=== PATIENT | female | born 1955 | race African-American/Black ===

== ENCOUNTER 2018-07-15 06:13 | Emergency (ER) | payer OTHER ==
--- NOTE | 2018-07-15 06:54 | ER Document Report ---
HPI - HPI Time Seen by Provider: 07/15/18 06:47 Pain Level: Denies Context: Patient is a 62-year-old female that comes to the emergency department for chief complaint of urinary hesitancy, a little bit of blood in her urine, but she denies abdominal pain. She states she is very familiar with the symptoms, this is the beginning of urinary tract infection for her. She states she gets them periodically. She denies fever or chills, nausea vomiting, pain in her abdomen or flank this time. She denies any other complaints. - REPRODUCTIVE Reproductive: DENIES: : Past Medical History - General Information source: Patient - Social History Smoking Status: Never Smoker Frequency of alcohol use: None Drug Abuse: None Lives with: Family Family History: Reviewed & Not Pertinent - Past Medical History Cardiac Medical History: Reports: Hx Hypercholesterolemia, Hx Hypertension Renal/ Medical History: Denies: Hx Peritoneal Dialysis Past Surgical History: Reports: Hx Hysterectomy - Immunizations Immunizations up to date: Yes Hx Diphtheria, Pertussis, Tetanus Vaccination: Yes - unsure Vertical Provider Document - CONSTITUTIONAL General Appearance: WD/WN, No Apparent Distress - INFECTION CONTROL TRAVEL OUTSIDE OF THE [place] IN LAST 30 DAYS: No - HEENT HEENT: Atraumatic, Normocephalic - NECK Neck: Normal Inspection - RESPIRATORY Respiratory: Breath Sounds Normal, No Respiratory Distress - CARDIOVASCULAR Cardiovascular: Regular Rate, Regular Rhythm - GI/ABDOMEN Gastrointestinal: Abdomen Soft, Abdomen Non-Tender - BACK Back: Normal Inspection - MUSCULOSKELETAL/EXTREMETIES Musculoskeletal/Extremeties: MAEW, FROM, Non-Tender - NEURO Level of Consciousness: Awake, Alert, Appropriate Motor/Sensory: No Motor Deficit, No Sensory Deficit - DERM Integumentary: Warm, Dry, No Rash Course - Re-evaluation Re-evalutation: Patient is extremely well-appearing, very well dressed, sitting on her bed reading a Bible study book. Soft benign abdomen, smiling and well-appearing, unremarkable vital signs. Patient's urine is concerningly infected in appearance. There also are calcium oxalate crystals. However patient has no flank pain, no abdominal pain, soft abdomen on exam, extremely well-appearing on reevaluation. She has no fever, vital signs are normal. I did discuss possibly doing additional work-up but thi s was deferred after discussion. This does appear to be treated cystitis at this time. Culture was placed, placed on antibiotics, discussed follow-up and return. Patient states understanding. - Vital Signs Vital signs: Temp Pulse Resp BP Pulse Ox 97.2 F 76 16 136/82 H 95 07/15/18 06:23 07/15/18 06:23 07/15/18 06:23 07/15/18 06:23 07/15/18 06:23 Discharge - Discharge Clinical Impression: Urinary symptom or sign Urinary tract infection Qualifiers: Urinary tract infection type: site unspecified Hematuria presence: with hematuria Qualified Code(s): N39.0 - Urinary tract infection, site not specified Condition: Stable Disposition: HOME, SELF-CARE Additional Instructions: Your symptoms and testing are most consistent with cystitis (a bladder infection). Take antibiotics as prescribed. Follow-up with primary care. Return if you worsen in any way including fever, abdominal pain, flank pain, vomiting, confusion, or any other concerning or worsening symptoms. Prescriptions: Cephalexin Monohydrate [Keflex 500 mg Capsule] 500 mg PO BID 7 Days #14 capsule Referrals: JUAN DAVID SHARP MD [Primary Care Provider] - Follow up as needed
[2018-07-15 07:25] LABS: APPEARANCE,URINE TURBID; BILIRUBIN,URINE NEGATIVE (NEGATIVE); CALCIUM OXALATE CRYSTALS,URINE TOO NUMEROUS TO CNT /HPF; COLOR,URINE RED; GLUCOSE, URINE 50 mg/dL (NEGATIVE); KETONES,URINE TRACE mg/dL (NEGATIVE); LEUKOCYTE ESTERASE,URINE TRACE (NEGATIVE); NITRITE,URINE NEGATIVE (NEGATIVE); PROTEIN,URINE 100 mg/dL (NEGATIVE); URINE SPECIFIC GRAVITY 1.023; UROBILINOGEN,URINE NEGATIVE mg/dL (<2.0)
[2018-07-15] MEDS ORDERED: CEPHALEXIN 500 MG CAPSULE PO ONE (07:36)
[2018-07-15 08:00] VITALS: BP 134/72
== END 2018-07-15 08:00 | disposition home or self-care (01) ==
LOC: ER 06:13
DX: N39.0 Urinary tract infection, site not specified (principal); R39.11 Hesitancy of micturition; E78.00 Pure hypercholesterolemia, unspecified; I10 Essential (primary) hypertension; Z90.710 Acquired absence of both cervix and uterus
CPT/HCPCS: 81001; 87086; 87088; 87186; 99283

== ENCOUNTER 2019-06-11 22:36 | Emergency (ER) | payer OTHER ==
[2019-06-11 23:38] LABS: APPEARANCE,URINE CLOUDY; BILIRUBIN,URINE NEGATIVE (NEGATIVE); COLOR,URINE YELLOW; GLUCOSE, URINE NEGATIVE (NEGATIVE); KETONES,URINE NEGATIVE (NEGATIVE); LEUKOCYTE ESTERASE,URINE LARGE (NEGATIVE); NITRITE,URINE POSITIVE (NEGATIVE); PROTEIN,URINE 100 mg/dL (NEGATIVE)
--- NOTE | 2019-06-12 00:10 | ER Document Report ---
ED General - General Chief Complaint: Urinary Frequency Stated Complaint: BLOOD IN URINE Primary Care Provider: JUAN DAVID SHARP MD [Primary Care Provider] - Follow up as needed Mode of Arrival: Ambulatory Information source: Patient TRAVEL OUTSIDE OF THE [place] IN LAST 30 DAYS: No - HPI Onset: Other - started earlier in the day yesterday Onset/Duration: Gradual Quality of pain: Achy - in suprapubic area Severity: Mild Associated symptoms: Other - urinary urgency and frequency Exacerbated by: Denies Relieved by: Denies Similar symptoms previously: Yes - with prior UTIs Recently seen / treated by doctor: No Notes: 63 year old female with a history of HTN and prior UTIs here in the ER for mild suprapubic pain, urinary urgency, urinary frequency and seeing blood in her urine. The patient says this feels like previous UTIs to her. The patient patient denies fevers, chills, sweats, nausea, vomiting, flank pain. The patient has never had resistant organism UTIs in the past based on prior urine cultures. - Related Data Allergies/Adverse Reactions: No Known Allergies Allergy (Verified 06/11/19 23:11) Past Medical History - General Information source: Patient - Social History Smoking Status: Never Smoker Frequency of alcohol use: None Drug Abuse: None Family History: Reviewed & Not Pertinent Patient has homicidal ideation: No - Past Medical History Cardiac Medical History: Reports: Hx Hypercholesterolemia, Hx Hypertension Renal/ Medical History: Denies: Hx Peritoneal Dialysis Past Surgical History: Reports: Hx Hysterectomy - Immunizations Immunizations up to date: Yes Hx Diphtheria, Pertussis, Tetanus Vaccination: Yes - unsure Review of Systems - Review of Systems Constitutional: No symptoms reported. denies: Fever EENT: No symptoms reported Cardiovascular: No symptoms reported Respiratory: No symptoms reported Gastrointestinal: No symptoms reported Genitourinary: Discharge, Frequency, Hematuria, Urgency. denies: Flank pain Musculoskeletal: No symptoms reported Skin: No symptoms reported Hematologic/Lymphatic: No symptoms reported Neurological/Psychological: No symptoms reported -: Yes All other systems reviewed and negative Physical Exam - Vital signs Vitals: Temp Pulse Resp BP Pulse Ox 97.7 F 83 13 164/89 H 98 06/11/19 22:41 06/11/19 22:41 06/11/19 22:41 06/11/19 22:41 06/11/19 22:41 - Notes Notes: GENERAL: Well-appearing, well-nourished and in no acute distress. HEAD: Atraumatic, normocephalic. EYES: Pupils equal round and reactive to light, extraocular movements intact, sclera anicteric, conjunctiva are normal. ENT: External ears normal, nares patent, oropharynx clear without exudates. Moist mucous membranes. NECK: Normal range of motion, supple without lymphadenopathy or JVD. LUNGS: Breath sounds clear to auscultation bilaterally and equal. No wheezes rales or rhonchi. HEART: Regular rate and rhythm without murmurs, rubs or gallops. ABDOMEN: Soft, nontender, normoactive bowel sounds. No guarding, no rebound. No masses appreciated. EXTREMITIES: Normal range of motion, no pitting or edema. No clubbing or cyanosis. NEUROLOGICAL: Cranial nerves II through XII grossly intact. Normal speech, normal gait. PSYCH: Normal mood, normal affect. SKIN: Warm, Dry, normal turgor, no rashes or lesions noted. Course - Re-evaluation Re-evalutation: 06/12/19 00:27 The patient has a simple UTI. Will treat with Cipro 250mg BID for 3 days. Patient given a dose of Cipro in the ER since all pharmacies closed at this hour. Urine culture pending. Looking back at prior urine cultures, patient has had [place] sensitive E coli UTIs in the past. - Vital Signs Vital signs: Temp Pulse Resp BP Pulse Ox 97.8 F 72 17 132/78 H 97 06/12/19 00:17 06/12/19 00:17 06/12/19 00:17 06/12/19 00:17 06/12/19 00:17 - Laboratory Laboratory results interpreted by nh: 06/11/19 23:12 Urine Protein 100 H Urine Blood LARGE H Urine Nitrite POSITIVE H Urine Urobilinogen 4.0 H Ur Leukocyte Esterase LARGE H Discharge - Discharge Clinical Impression: UTI (urinary tract infection) Qualifiers: Urinary tract infection type: acute cystitis Hematuria presence: with hematuria Qualified Code(s): N30.01 - Acute cystitis with hematuria Condition: Stable Disposition: HOME, SELF-CARE Instructions: Urinary Tract Infection ([facility]) Additional Instructions: Drink plenty of water in the days to come. Take antibiotics (Cipro 250mg twice a day for 3 days) as prescribed. Follow up with your primary care doctor if symptoms persist despite treatment. You have a urine culture pending which your doctor can follow up. Prescriptions: Ciprofloxacin HCl [Cipro 500 mg Tablet] 250 mg PO BID #6 tablet Referrals: JUAN DAVID SHARP MD [Primary Care Provider] - Follow up as needed
[2019-06-12 00:18] VITALS: BP 132/78
[2019-06-12] MEDS ORDERED: CIPROFLOXACIN HCL 500 MG TABLET PO ONE (00:20)
== END 2019-06-12 00:28 | disposition home or self-care (01) ==
LOC: ER 22:36
DX: N30.01 Acute cystitis with hematuria (principal); I10 Essential (primary) hypertension
CPT/HCPCS: 81001; 87086; 87088; 87186; 99283

== ENCOUNTER 2019-09-26 22:17 | Emergency (ER) | payer OTHER ==
[2019-09-26 22:38] VITALS: BP 151/79
[2019-09-26 23:38] LABS: APPEARANCE,URINE CLOUDY; BILIRUBIN,URINE NEGATIVE (NEGATIVE); COLOR,URINE YELLOW; GLUCOSE, URINE NEGATIVE (NEGATIVE); KETONES,URINE NEGATIVE (NEGATIVE); LEUKOCYTE ESTERASE,URINE LARGE (NEGATIVE); NITRITE,URINE NEGATIVE (NEGATIVE); PROTEIN,URINE 100 mg/dL (NEGATIVE); URINE SPECIFIC GRAVITY 1.021
[2019-09-26] MEDS ORDERED: CEFTRIAXONE INJ 1000 MG VIAL IM ONE (23:41)
[2019-09-26] MEDS ORDERED: LIDOCAINE 1% INJ (10 MG/ML) 10 ML MDV INJ ONE (23:41)
--- NOTE | 2019-09-26 23:41 | ER Document Report ---
HPI - HPI Patient complains to provider of: UTI Time Seen by Provider: 09/26/19 23:15 Onset: Yesterday Onset/Duration: Gradual Pain Level: Denies Context: Patient states that she feels as though she may have the beginning of a urinary tract infection. Patient reports pressure with voiding that started yesterday. Patient denies any fever, nausea or vomiting. Patient denies any abdominal fl ank pain. Associated Symptoms: denies: Fever, Vomiting Exacerbated by: Denies Relieved by: Denies Similar symptoms previously: Yes Recently seen / treated by doctor: No - ROS ROS below otherwise negative: Yes Systems Reviewed and Negative: Yes All other systems reviewed and negative - CONSTITUTIONAL Constitutional: DENIES: Fever - NEURO Neurology: DENIES: Weakness - GASTROINTESTINAL Gastrointestinal: DENIES: Abdominal Pain, Nausea, Patient vomiting - URINARY Urinary: REPORTS: Dysuria - Pressure with voiding. DENIES: Urgency, Frequency - MUSCULOSKELETAL Musculoskeletal: DENIES: Back Pain - DERM Skin Color: Normal Skin Problems: None Past Medical History - General Information source: Patient - Social History Smoking Status: Never Smoker Frequency of alcohol use: None Drug Abuse: None Family History: Reviewed & Not Pertinent Patient has homicidal ideation: No - Past Medical History Cardiac Medical History: Reports: Hx Hypercholesterolemia, Hx Hypertension Renal/ Medical History: Denies: Hx Peritoneal Dialysis Past Surgical History: Reports: Hx Hysterectomy - Immunizations Immunizations up to date: Yes Hx Diphtheria, Pertussis, Tetanus Vaccination: Yes - unsure Vertical Provider Document - CONSTITUTIONAL Agree With Documented VS: Yes Exam Limitations: No Limitations General Appearance: WD/WN, No Apparent Distress - INFECTION CONTROL TRAVEL OUTSIDE OF THE [place] IN LAST 30 DAYS: No - HEENT HEENT: Atraumatic, Normocephalic - NECK Neck: Normal Inspection - RESPIRATORY Respiratory: Breath Sounds Normal, No Respiratory Distress - CARDIOVASCULAR Cardiovascular: Regular Rate, Regular Rhythm - GI/ABDOMEN Gastrointestinal: Abdomen Soft, Abdomen Non-Tender - BACK Back: Normal Inspection. negative: CVA Tenderness-Right, CVA Tenderness-Left - MUSCULOSKELETAL/EXTREMETIES Musculoskeletal/Extremeties: MAEW - NEURO Level of Consciousness: Awake, Alert, Appropriate Motor/Sensory: No Motor Deficit - DERM Integumentary: Warm, Dry, No Rash Course - Re-evaluation Re-evalutation: 09/26/19 23:54 Patient with UTI, no concern for pyelonephritis, patient without any tenderness to abdomen or flank area. Patient nontoxic in appearance. Review of patient's previous urine cultures demonstrates that patient typically grows out E. coli. Will give patient a shot of Rocephin and placed on Keflex. Patient verbalized understanding is agreeable discharge plan of care - Vital Signs Vital signs: Temp Pulse Resp BP Pulse Ox 98.0 F 76 20 151/79 H 100 09/26/19 22:37 09/26/19 22:37 09/26/19 22:37 09/26/19 22:37 09/26/19 22:37 - Laboratory Laboratory results interpreted by me: 09/26/19 23:19 Urine Protein 100 H Urine Blood LARGE H Urine Urobilinogen 4.0 H Ur Leukocyte Esterase LARGE H 09/26/19 23:53 Labs- All tests 24 hr 09/26/19 23:19 Urine Color YELLOW Urine Appearance CLOUDY Urine pH 6.0 Ur Specific [place] 1.021 Urine Protein 100 H Urine Glucose (UA) NEGATIVE Urine Ketones NEGATIVE Urine Blood LARGE H Urine Nitrite NEGATIVE Urine Bilirubin NEGATIVE Urine Urobilinogen 4.0 H Ur Leukocyte Esterase LARGE H Urine WBC (Auto) 137 Urine RBC (Auto) >182 Squamous Epi Cells Auto 3 Urine Ascorbic Acid NEGATIVE Discharge - Discharge Clinical Impression: UTI (urinary tract infection) Qualifiers: Urinary tract infection type: acute cystitis Hematuria presence: with hematuria Qualified Code(s): N30.01 - Acute cystitis with hematuria Condition: Stable Disposition: HOME, SELF-CARE Instructions: Cephalexin ([facility]), Rocephin ([facility]), Urinary Tract Infection ([facility]) Additional Instructions: Return immediately for any new or worsening symptoms Followup with your primary care provider, call tomorrow to make a followup appointment Urine culture is pending, we will call if you need any different treatment Prescriptions: Cephalexin Monohydrate [Keflex 500 mg Capsule] 500 mg PO BID 7 Days #20 capsule Referrals: JUAN DAVID SHARP MD [Primary Care Provider] - Follow up tomorrow
== END 2019-09-27 00:01 | disposition home or self-care (01) ==
LOC: ER 22:17
DX: N30.01 Acute cystitis with hematuria (principal); R39.198 Other difficulties with micturition; R30.0 Dysuria; I10 Essential (primary) hypertension
CPT/HCPCS: 99284; 96372; 87086; 87088; 81001; 87186; J0696

== ENCOUNTER 2019-10-23 16:25 | Emergency (ER) | payer OTHER ==
--- NOTE | 2019-10-23 17:14 | ER Document Report ---
HPI - HPI Time Seen by Provider: 10/23/19 17:02 Context: Patient is a 64-year-old female with a history of hypertension who presents emergency department with a chief complaint of [place] frequency and retention. Patient states that she has had any tract infections in the past. Denies any abdominal pain. Denies any fever, body aches, or chills. - ROS Systems Reviewed and Negative: Yes All other systems reviewed and negative - CONSTITUTIONAL Constitutional: DENIES: Fever, Chills - NEURO Neurology: DENIES: Headache, Weakness - CARDIOVASCULAR Cardiovascular: DENIES: Chest pain - RESPIRATORY Respiratory: DENIES: Trouble Breathing, Coughing - GASTROINTESTINAL Gastrointestinal: DENIES: Abdominal Pain, Nausea, Patient vomiting, Diarrhea - URINARY Urinary: REPORTS: Urgency, Frequency. DENIES: Dysuria - REPRODUCTIVE Reproductive: DENIES: : - MUSCULOSKELETAL Musculoskeletal: DENIES: Extremity pain - DERM Skin Color: Normal Skin Problems: None Past Medical History - General Information source: Patient - Social History Smoking Status: Never Smoker Family History: Reviewed & Not Pertinent - Past Medical History Cardiac Medical History: Reports: Hx Hypercholesterolemia, Hx Hypertension Renal/ Medical History: Denies: Hx Peritoneal Dialysis Past Surgical History: Reports: Hx Hysterectomy - Immunizations Immunizations up to date: Yes Hx Diphtheria, Pertussis, Tetanus Vaccination: Yes - unsure Vertical Provider Document - CONSTITUTIONAL Agree With Documented VS: Yes Exam Limitations: No Limitations General Appearance: No Apparent Distress - INFECTION CONTROL TRAVEL OUTSIDE OF THE [place] IN LAST 30 DAYS: No - HEENT HEENT: Atraumatic, Normocephalic, PERRLA - NECK Neck: Normal Inspection - RESPIRATORY Respiratory: Breath Sounds Normal, No Respiratory Distress - CARDIOVASCULAR Cardiovascular: Regular Rate, Regular Rhythm Pulses: Normal: Radial - GI/ABDOMEN Gastrointestinal: Abdomen Soft, Abdomen Non-Tender - MUSCULOSKELETAL/EXTREMETIES Musculoskeletal/Extremeties: FROM - NEURO Level of Consciousness: Awake, Alert, Appropriate Course - Re-evaluation Re-evalutation: 10/23/19 17:53 There is some blood in the patient's urine. Based off the patient's symptoms, will start the patient on antibiotics. She will follow-up with her primary care provider. I have a low suspicion for any life-threatening etiology at this time. No abdominal pain noted. No evidence of pyelonephritis. Follow-up precautions were given. Verbal discharge instructions were given to the patient. They verbalized understanding. They are stable for discharge. - Vital Signs Vital signs: Temp Pulse Resp BP Pulse Ox 98.4 F 67 18 157/75 H 98 10/23/19 16:34 10/23/19 16:34 10/23/19 16:34 10/23/19 16:34 10/23/19 16:34 Discharge - Discharge Clinical Impression: Hematuria Qualifiers: Hematuria type: gross Qualified Code(s): R31.0 - Gross hematuria Urinary tract infection Qualifiers: Urinary tract infection type: acute cystitis Hematuria presence: with hematuria Qualified Code(s): N30.01 - Acute cystitis with hematuria Condition: Stable Disposition: HOME, SELF-CARE Instructions: Cephalexin ([facility]) Additional Instructions: Your urine shows findings consistent with a urinary tract infection. Please take all the antibiotics as directed even if your symptoms have improved. Please follow-up with your primary care physician as needed. Return to emergency room if you develop fever >101F, persistent vomiting, become lethargic, have severe pain in your sides, or any other symptoms that are concerning to you. Prescriptions: Cephalexin [Keflex] 500 mg PO BID #14 capsule Referrals: MEG VALDEZ MD [Primary Care Provider] - Follow up in 3-5 days
[2019-10-23 17:43] LABS: BILIRUBIN,URINE NEGATIVE (NEGATIVE); GLUCOSE, URINE NEGATIVE (NEGATIVE); KETONES,URINE NEGATIVE (NEGATIVE); PROTEIN,URINE 100 mg/dL (NEGATIVE); URINE SPECIFIC GRAVITY 1.018
[2019-10-23 17:46] LABS: APPEARANCE,URINE TURBID; COLOR,URINE RED
[2019-10-23 18:27] VITALS: BP 164/82
== END 2019-10-23 18:27 | disposition home or self-care (01) ==
LOC: ER 16:25
DX: N30.01 Acute cystitis with hematuria (principal); E78.00 Pure hypercholesterolemia, unspecified; I10 Essential (primary) hypertension; Z90.710 Acquired absence of both cervix and uterus
CPT/HCPCS: 36415; 81001; 87086; 87088; 87186; 99283